=== PATIENT | female | born 1990 | race Caucasian/White ===

== ENCOUNTER 2017-10-09 19:45 | Emergency (ER) | payer OTHER ==
[~2017-10-09] VITALS: Ht 167.6 cm; Wt 58.1 kg
--- NOTE | 2017-10-09 19:50 | NUR ---
INTERMITTENT NECK SPASMS X 10 DAYS. NAD NOTED, VSS, RESP EVEN AND UNLABORED, PT WAS PUT ON MONITOR, AT BS.
[2017-10-09] MEDS ORDERED: KETOROLAC TROMETHAMINE INJ 30 MG/ML VIAL ONE (20:45)
[2017-10-09] MEDS ORDERED: DIAZEPAM 5 MG TABLET ONE (20:45)
--- NOTE | 2017-10-09 20:50 | NUR ---
URINE SENT TO LAB
[2017-10-09] MEDS ORDERED: KETOROLAC TROMETHAMINE INJ 60 MG/2 ML VIAL IM ONE (21:00)
[2017-10-09] MEDS ORDERED: DIAZEPAM 5 MG TABLET PO ONE (21:00)
--- NOTE | 2017-10-09 21:04 | NUR ---
PT TO [facility]SCAN
[2017-10-09 22:38] VITALS: BP 139/80
--- NOTE | 2017-10-09 22:39 | NUR ---
DPatient discharged to home in stable condition. Written and verbal after care instructions given. Patient verbalizes understanding of instruction. Prescription given.
== END 2017-10-09 22:40 | disposition home or self-care (01) ==
LOC: ER 19:45
DX: M54.2 Cervicalgia (principal); M62.838 Other muscle spasm
CPT/HCPCS: 72050-TC; 84703-TC; A4606; J1885; Z7610

== ENCOUNTER 2018-12-05 06:53 | Emergency (ER) | payer OTHER ==
[~2018-12-05] VITALS: Ht 165.1 cm; Wt 55.3 kg
[2018-12-05 06:57] VITALS: BP 124/77
--- NOTE | 2018-12-05 07:04 | NUR ---
seen and assessed by dr. [email or web address]
== END 2018-12-05 07:07 | disposition home or self-care (01) ==
LOC: ER 06:55
DX: R19.7 Diarrhea, unspecified (principal); R55 Syncope and collapse